=== PATIENT | female | born 1975 | race Caucasian/White ===

== ENCOUNTER 2024-12-09 02:31 | Inpatient (IN) | payer SELFPAY ==
[2024-12-09] MEDS ORDERED: Acetaminophen 500 MG TAB ONE (03:08)
[2024-12-09] MEDS ORDERED: cefTRIAXone (ROCEPHIN) 2 GM VIAL ONE (03:08)
[2024-12-09 03:09] LABS: #Basophils 0.08 10x3/uL (0.0-0.2); #Eosinophils 0.45 10x3/uL (0.0-0.5); #Monocytes 0.65 10x3/uL (0.0-1.1); #Neutrophils 10.51 10x3/uL (1.5-8.4); %Basophils 0.6 % (0.0-2.0); %Eosinophils 3.5 % (0.0-6.0); %Lymphocytes 9.7 % (18.0-47.0); %Monocytes 5.0 % (0.0-10.0); %Neutrophils 80.7 % (40.0-75.0); Hematocrit 42.9 % (34.9-44.5); Hemoglobin 13.7 g/dL (12.0-15.5); Mean Corpuscular Hemoglobin 27.3 pg (27.0-33.0); Mean Corpuscular Volume 85.5 fL (81.6-98.3); Platelet Count 277 10x3/uL (150-450); Red Blood Cell (RBC) Count 5.02 10x6/uL (3.90-5.03); White Blood Cell (WBC) Count 13.02 10x3/uL (3.5-10.5)
[2024-12-09 03:23] LABS: ALT (SGPT) 17 U/L (Less than 34); AST (SGOT) 25 U/L (11-34); Albumin 4.2 g/dL (3.1-4.5); Alkaline Phosphatase 93 U/L (40-110); Anion Gap 13 mmol/L (10-20); BUN (Urea Nitrogen) 15 mg/dL (9.8-20.1); Bilirubin, Total 0.3 mg/dL (0.3-1.2); Calc. Creatinine Clearance 0 mL/min (70-130); Calcium 10.0 mg/dL (7.8-10.44); Carbon Dioxide 27 mmol/L (22-29); Chloride 101 mmol/L (98-107); Globulin 4.0 g/dL (2.4-3.5); Glucose 144 mg/dL (70-105); Potassium 4.0 mmol/L (3.5-5.1); Sodium 137 mmol/L (136-145)
[2024-12-09] MEDS ORDERED: diphenhydrAMINE 50 MG/ML VIAL ONE (03:48)
[2024-12-09] MEDS ORDERED: Ondansetron PF 4 MG/2 ML Vial IVP PRN (05:01)
[2024-12-09] MEDS ORDERED: Dextrose 50% Abboject 50 ML SYRINGE SLOW IVP PRN (05:05)
[2024-12-09] MEDS ORDERED: Glucagon 1 MG/ML KIT IM PRN (05:05)
[2024-12-09] MEDS: Vancomycin 2.5 GM in Sodium Chloride 0.9% 500 ML IVPB SCH (08:11)
[2024-12-09] MEDS: Famotidine/PF 20 mg/2ml Vial SLOW IVP SCH (08:36)
[2024-12-09] MEDS ORDERED: VANCOMYCIN 1.25 GM/250 ML BAG 1.25 GM in Premix 1 BAG IVPB SCH (09:00)
[2024-12-09] MEDS: Enoxaparin 40 MG (0.4 mL) SYRINGE SC SCH (09:23)
[2024-12-09] MEDS: Famotidine 20 MG TAB PO SCH (09:23)
[2024-12-09 09:34] VITALS: BMI 61.3
[2024-12-09 09:40] LABS: Glucose, Urine (Dipstick) Normal (Negative); Leukocyte Negative (Negative); Protein, Urine (Dipstick) Negative (Neg-Trace); Specific Gravity, Urine 1.020 (1.005-1.030)
[2024-12-09 09:49] LABS: Bacteria/HPF Rare-Few HPF (None Seen); RBC/HPF None Seen HPF (0-3); WBC/HPF 0-3 HPF (0-3)
[2024-12-09] MEDS: diphenhydrAMINE 12.5 MG/5 ML UDCUP PO PRN (15:14)
[2024-12-09] MEDS: Methocarbamol 500 MG TAB PO SCH (15:15)
[2024-12-09] MEDS: Vancomycin 1 GM in Sodium Chloride 0.9% 250 ML 250 ML IVPB SCH (15:18)
[2024-12-10] MEDS: cefTRIAXone\\ROCEPHIN 1 GM in Sodium Chloride 0.9% 100 ML IVPB SCH (02:06)
[2024-12-10] MEDS: Acetaminophen 325 MG TAB PO PRN (03:56)
[2024-12-10 04:18] LABS: #Basophils 0.04 10x3/uL (0.0-0.2); #Eosinophils 0.39 10x3/uL (0.0-0.5); #Monocytes 0.41 10x3/uL (0.0-1.1); #Neutrophils 5.36 10x3/uL (1.5-8.4); %Basophils 0.5 % (0.0-2.0); %Eosinophils 5.2 % (0.0-6.0); %Lymphocytes 17.0 % (18.0-47.0); %Monocytes 5.5 % (0.0-10.0); %Neutrophils 71.3 % (40.0-75.0); Hematocrit 42.1 % (34.9-44.5); Hemoglobin 13.3 g/dL (12.0-15.5); Mean Corpuscular Hemoglobin 27.7 pg (27.0-33.0); Mean Corpuscular Volume 87.5 fL (81.6-98.3); Platelet Count 257 10x3/uL (150-450); Red Blood Cell (RBC) Count 4.81 10x6/uL (3.90-5.03); White Blood Cell (WBC) Count 7.52 10x3/uL (3.5-10.5)
[2024-12-10 04:31] LABS: Vancomycin, Random 19.3 ug/mL (See Comment)
[2024-12-10 04:35] LABS: ALT (SGPT) 13 U/L (Less than 34); AST (SGOT) 19 U/L (11-34); Albumin 3.9 g/dL (3.1-4.5); Alkaline Phosphatase 80 U/L (40-110); Anion Gap 12 mmol/L (10-20); BUN (Urea Nitrogen) 11 mg/dL (9.8-20.1); Bilirubin, Total 0.4 mg/dL (0.3-1.2); Calc. Creatinine Clearance 250 mL/min (70-130); Calcium 9.2 mg/dL (7.8-10.44); Carbon Dioxide 29 mmol/L (22-29); Chloride 104 mmol/L (98-107); Globulin 3.7 g/dL (2.4-3.5); Glucose 121 mg/dL (70-105); Potassium 4.1 mmol/L (3.5-5.1); Sodium 141 mmol/L (136-145)
[2024-12-10] MEDS: Lisinopril 10 MG TAB PO SCH (08:13)
[2024-12-10] MEDS: Aspirin Chewable 81 MG TAB PO SCH (08:14)
[2024-12-10] MEDS ORDERED: Methocarbamol 500 MG TAB PO PRN (09:47)
[2024-12-10] MEDS: Sertraline 25 MG TAB PO SCH (10:29)
[2024-12-10] MEDS: Metamucil PACK PO SCH (16:00)
[2024-12-11 05:02] LABS: #Basophils 0.03 10x3/uL (0.0-0.2); #Eosinophils 0.42 10x3/uL (0.0-0.5); #Monocytes 0.49 10x3/uL (0.0-1.1); #Neutrophils 5.96 10x3/uL (1.5-8.4); %Basophils 0.4 % (0.0-2.0); %Eosinophils 5.1 % (0.0-6.0); %Lymphocytes 16.3 % (18.0-47.0); %Monocytes 5.9 % (0.0-10.0); %Neutrophils 71.8 % (40.0-75.0); Hematocrit 40.6 % (34.9-44.5); Hemoglobin 12.9 g/dL (12.0-15.5); Mean Corpuscular Hemoglobin 27.4 pg (27.0-33.0); Mean Corpuscular Volume 86.2 fL (81.6-98.3); Platelet Count 239 10x3/uL (150-450); Red Blood Cell (RBC) Count 4.71 10x6/uL (3.90-5.03); White Blood Cell (WBC) Count 8.29 10x3/uL (3.5-10.5)
[2024-12-11 05:17] LABS: Anion Gap 12 mmol/L (10-20); BUN (Urea Nitrogen) 14 mg/dL (9.8-20.1); Calc. Creatinine Clearance 284 mL/min (70-130); Calcium 9.4 mg/dL (7.8-10.44); Carbon Dioxide 28 mmol/L (22-29); Chloride 103 mmol/L (98-107); Glucose 140 mg/dL (70-105); Potassium 4.1 mmol/L (3.5-5.1); Sodium 139 mmol/L (136-145)
[2024-12-11] MEDS: Lisinopril 10 MG TAB PO SCH (08:59)
[2024-12-11] MEDS: Metamucil PACK PO SCH (09:00)
[2024-12-12 04:51] LABS: Vancomycin, Random 20.1 ug/mL (See Comment)
[2024-12-12 12:06] VITALS: BP 126/58; TEMP 98
== END 2024-12-12 15:01 | disposition home or self-care (01) | DRG 603 ==
LOC: CSHERS 02:31 → CSHERHOLD 05:01 → CSHTELE 08:07 → OBSVTOIN 12:33
PROVIDERS: ADMIT Internal Medicine; ATTEND Family Medicine
DX: L03.115 Cellulitis of right lower limb (principal); R78.81 Bacteremia; I10 Essential (primary) hypertension; L03.116 Cellulitis of left lower limb; E78.5 Hyperlipidemia, unspecified; G47.33 Obstructive sleep apnea (adult) (pediatric); E11.9 Type 2 diabetes mellitus without complications; Z88.8 Allergy status to other drugs, medicaments and biological substances; I89.0 Lymphedema, not elsewhere classified; I48.0 Paroxysmal atrial fibrillation; F32.9 Major depressive disorder, single episode, unspecified; E03.9 Hypothyroidism, unspecified; E66.01 Morbid (severe) obesity due to excess calories; K58.8 Other irritable bowel syndrome; L73.8 Other specified follicular disorders; B96.89 Other specified bacterial agents as the cause of diseases classified elsewhere; Z98.890 Other specified postprocedural states; Z98.51 Tubal ligation status; Z91.048 Other nonmedicinal substance allergy status; Z88.5 Allergy status to narcotic agent
CPT/HCPCS: 36415; 36416; 80048; 80053; 80202; 81001; 83605; 85025; 87040; 87077; 87081; 87149; 87186; 93005; 93306; 96365; 96372; 96375; 96376; G0378; J0696; J1200; J1650; J3373; J7030; J7050; Q0163